=== PATIENT | female | born 1955 | race Caucasian/White ===

== ENCOUNTER 2017-10-31 08:19 | Emergency (ER) | payer OTHER ==
[~2017-10-31] VITALS: Ht 170.2 cm; Wt 73.5 kg
[~2017-10-31 08:19] MED LIST: ACETAMINOPHEN325 M1 PO; ALPRAZOLAM 0.0.25 M1 PO; ASPIRIN325 PO; AUGMENTIN 875875 M1 PO; BYSTOLIC 5 MG5 M1 PO; CALCIUM ASCORB500 MG; CORAL CALCIUM1 EAC2 PO; CYCLOBENZAPRINE10 MG PO; FLAGYL500 MG PO; MAGNESIUM250 M1 PO; PRILOSEC40 MG; PRINZIDE 20-121 EACH PO; PROTONIX40 M2 PO; XANAX 0.5 MG0.5 MG PO
[2017-10-31] MEDS ORDERED: HYDROCHLOROTH12.5 M1 PO (08:35)
[2017-10-31 08:47] LABS: URINE BILIRUBIN NEGATIVE (Negative); URINE BLOOD NEGATIVE (Negative); URINE CLARITY CLOUDY; URINE COLOR YELLOW; URINE GLUCOSE-RANDOM NEGATIVE (Negative); URINE KETONES NEGATIVE (Negative); URINE LEUKOCYTES-REFLEX TRACE (Negative); URINE NITRITE-REFLEX NEGATIVE (Negative); URINE PROTEIN NEGATIVE (Negative); URINE SPECIFIC GRAVITY >= 1.030 (1.005-1.030); URINE UROBILINOGEN 0.2 E.U./dl (0.2-1.0)
[2017-10-31 08:55] LABS: SQUAMOUS NONE SEEN /LPF (0-3); URIC ACID CRYSTALS >10 Many /LPF (None Seen); URINE RBC 0-2 Rare /HPF (0-2)
[2017-10-31 08:56] LABS: CASTS None Seen /LPF (None Seen); URINE WBC-REFLEX 0-5 Rare /HPF (0-5)
[2017-10-31 09:01] LABS: ABSOLUTE EOSINOPHILS 0.1 thou/uL (0.0-0.7); ABSOLUTE LYMPHOCYTES 2.1 thou/uL (0.8-5.3); ABSOLUTE MONOCYTES 0.5 thou/uL (0.0-1.2); ABSOLUTE NEUTROPHILS 2.5 thou/uL (1.6-8.1); BASOPHILS 0.9 %; EOSINOPHILS 2.1 %; HEMATOCRIT 42.7 % (37.0-47.0); HEMOGLOBIN 14.6 gm/dL (12.0-15.0); LYMPHOCYTES 40.8 %; MCH 30.7 pg (26.0-34.0); MCHC 34.2 g/dL (28.0-37.0); MCV 89.9 fL (80.0-100.0); MONOCYTES 8.9 %; MPV 8.9 fl. (7.2-11.1); NUCLEATED RBCS 0 /100WBC; PLATELET COUNT* 218 thou/uL (150-400); POLYS 47.3 %; RBC 4.75 mil/uL (4.20-5.00); RDW-CV 12.3 % (10.5-14.5); WBC 5.2 thou/uL (4.0-11.0)
[2017-10-31 09:06] LABS: ANION GAP 9 mmol/L (7-16); BUN 13 mg/dL (7-18); CALCIUM 9.2 mg/dL (8.5-10.1); CHLORIDE 104 mmol/L (98-107); CO2 28 mmol/L (21-32); GLUCOSE 90 mg/dL (70-99); POTASSIUM 3.4 mmol/L (3.5-5.1); SODIUM 141 mmol/L (136-145)
[2017-10-31 09:13] LABS: ALKALINE PHOSPHATASE 54 U/L (46-116); LIPASE 148 U/L (73-393); SGOT 15 U/L (15-37); SGPT 21 U/L (30-65); TOTAL BILIRUBIN 0.6 mg/dL (<0.1-1.0); TOTAL PROTEIN 7.1 g/dL (6.4-8.2); TROPONIN-I LEVEL <0.06 ng/mL (<0.06)
[2017-10-31] MEDS ORDERED: HYDROCODON-ACE1 EAC7 PO (10:29)
[2017-10-31] MEDS ORDERED: FLOMAX0.4 MG PO (10:29)
[2017-10-31] MEDS ORDERED: PERCOCET 5-3251 EACH PO (10:37)
[2017-10-31 10:43] VITALS: BP 135/78
--- NOTE | 2017-10-31 17:30 | EKG ---
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 AGARWAL : 1955 Requested By: Poncho Chapman Order Number: [id number] MD: Daniel Simpson Measurements Intervals [place] Rate: 57 P: 36 DC: 143 QRS: -12 QRSD: 109 T: 51 QT: 447 QTc: 436 Interpretive Statements Sinus rhythm Low voltage, precordial leads Compared to ECG 01/16/2014 19:29:22 Low QRS voltage now present Electronically Signed On 10-31-2017 17:30:29 [employer] by Daniel Simpson [email or web address] <ELECTRONICALLY SIGNED> By: Daniel Simpson MD, [facility] 10/31/17 1730 Daniel Simpson MD, [facility] /EPI
== END 2017-10-31 10:43 | disposition home or self-care (01) ==
LOC: M.ERS 08:19
PROVIDERS: Emergency Medicine
DX: R10.12 Left upper quadrant pain (principal); I10 Essential (primary) hypertension; F10.99 Alcohol use, unspecified with unspecified alcohol-induced disorder; Z98.890 Other specified postprocedural states; Z87.09 Personal history of other diseases of the respiratory system; Z88.1 Allergy status to other antibiotic agents; Z88.5 Allergy status to narcotic agent